=== PATIENT | male | born 2000 | race Caucasian/White ===

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

== ENCOUNTER 2018-02-09 16:01 | Emergency (ER) | payer OTHER | END 2018-02-09 16:20 | disposition home or self-care (01) | LOC: E/R 16:20 | DX: R21 Rash and other nonspecific skin eruption (principal); J02.9 Acute pharyngitis, unspecified | CPT/HCPCS: 99283; Z7502 ==